=== PATIENT | female | born 1930 | race Hispanic/Latino ===

== ENCOUNTER 2017-10-17 07:43 | Emergency (ER) | payer MEDICARE ==
--- NOTE | 2017-10-17 09:24 | XRay Report ---
RIGHT WRIST RADIOGRAPHS INDICATION: Pain, deformity. COMPARISON: None similar at this institution. FINDINGS: AP, lateral and oblique right wrist radiographs demonstrate distal radius metaphyseal Colles' fracture with lateral cortical offset of 2 mm on the frontal view. Intact distal radioulnar and radiocarpal articulations however. Extensive overlying diffuse soft tissue swelling. 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 CONCLUSION: Right wrist acute Colles' fracture, bony demineralization and osteoarthritic changes noted, as above. Thank you for the opportunity to participate in this patient's care.
[2017-10-17] MEDS ORDERED: NORCO 5/325 PO ONE (09:26)
--- NOTE | 2017-10-17 09:27 | XRay Report ---
RIGHT KNEE RADIOGRAPHS INDICATION: Pain. COMPARISON: None similar. FINDINGS: AP, lateral and oblique right knee radiographs demonstrate mild to moderate medial compartment narrowing and mild degenerative spurring medially. Possible osteopenia. Mild diffuse soft tissue swelling/prominence at the knee anteriorly questioned. CONCLUSION: No acute right knee bony abnormality with mild medial compartment degenerative changes noted, as above. Thank you for the opportunity to participate in this patient's care.
--- NOTE | 2017-10-17 10:03 | Emergency Department Report ---
ED Fall HPI - General Chief Complaint: Extremity Injury, Upper Stated Complaint: FALL, POSS FX WRIST, HIP PAIN Time Seen by Provider: 10/17/17 08:43 Source: patient, family Mode of arrival: Ambulatory - History of Present Illness Initial Comments: ` Patient here with her family member reports that she slipped and fell last night and injured her right wrist which is her dominant hand. She says she is having pain 7 out of 10 to her right wrist and right knee and achy to the knee and throbbing to right wrist. She says she fell and tried to brace her fall with her right hand and during this time she hit her right knee. Patient is a history of arthritis but denies osteoporosis. Denies any dizziness or lightheadedness prior to falling. Denies any headache or head injury. Denies any nausea or vomiting. Denies any back pain or neck pain. No over-the- counter pain medication taken. Pain is better at rest then worse with movement. Patient lives at home with her daughter. She denies any urinary burning frequency or urgency. Denies any cough or congestion. Denies any shortness of breath or chest pain. Denies any dizziness, nausea or vomiting. Denies any abdominal or back pain. MD Complaint: fall -: Last night Fall From: standing When Fall Occurred: other (Last night) Fall Witnessed: no Place Fall Occurred: home Loss of Consciousness: none Prolonged Down Time?: no Symptoms Prior to Fall: none Location - Extremities: Right: Forearm (at wrist), Hand, Knee Severity: severe Severity scale (0 -10): 8 Quality: aching, other (Throbbing) Context: tripped/slipped Associated Symptoms: denies: headache, neck pain, numbness, weakness, chest paint, shortness of breath, abdominal pain, hematuria, unable to walk, lightheaded, vertigo, confusion - Related Data Previous Rx's Medication Instructions Recorded Last Taken Type Acetaminophen/Codeine [Tylenol 1 tab PO Q6H PRN 3 Days #12 tab 10/17/17 Unknown Rx /Codeine # 3 tab] Ibuprofen [Motrin] 600 mg PO Q8H PRN 5 Days #15 tablet 10/17/17 Unknown Rx Allergies Allergy/AdvReac Type Severity Reaction Status Date / Time No Known Allergies Allergy Unverified 10/17/17 08:16 ED Review of Systems ROS: Stated complaint: FALL, POSS FX WRIST, HIP PAIN Other details as noted in HPI Comment: All other systems reviewed and negative Constitutional: no symptoms reported ENT: denies: ear pain, throat pain, congestion Respiratory: no symptoms reported Cardiovascular: denies: chest pain, palpitations, dyspnea on exertion, orthopnea , edema, syncope, paroxysmal nocturnal dyspnea Gastrointestinal: denies: abdominal pain, nausea, vomiting, diarrhea, constipation Genitourinary: denies: urgency, dysuria, frequency, hematuria, discharge Musculoskeletal: joint swelling, arthralgia. denies: back pain, myalgia Skin: denies: rash Neurological: denies: headache, weakness, numbness, paresthesias, confusion, abnormal gait, vertigo ED Past Medical Hx - Past Medical History Previous Medical History?: Yes Hx Hypertension: Yes - Surgical History Past Surgical History?: No - Family History Family history: hypertension - Social History Smoking Status: Never Smoker Substance Use Type: Alcohol - Medications Home Medications: Home Medications Medication Instructions Recorded Confirmed Last Taken Type Acetaminophen/Codeine [Tylenol 1 tab PO Q6H PRN 3 Days #12 tab 10/17/17 Unknown Rx /Codeine # 3 tab] Ibuprofen [Motrin] 600 mg PO Q8H PRN 5 Days #15 tablet 10/17/17 Unknown Rx ED Physical Exam - General Limitations: No Limitations General appearance: alert, in no apparent distress - Head Head exam: Present: atraumatic, normocephalic, normal inspection - Expanded Head Exam Expanded Head exam: Absent: laceration, abrasion, contusion, hematoma, racoon eyes, renee's sign, general tenderness, tenderness of temporal artery, CSF rhinorrhea , CSF otorrhea - Eye Eye exam: Present: normal appearance, PERRL, EOMI. Absent: nystagmus, periorbital swelling, periorbital tenderness Pupils: Present: normal accommodation - ENT ENT exam: Present: normal exam, normal orophraynx, mucous membranes moist, TM's normal bilaterally, normal external ear exam - Neck Neck exam: Present: normal inspection, full ROM, other (no C-spine tenderness). Absent: tenderness, meningismus, lymphadenopathy, thyromegaly - Expanded Neck Exam Expanded Neck exam: Absent: tenderness, midline deformity, anterior neck swelling, thyroid mass, carotid bruit, tracheal deviation - Respiratory Respiratory exam: Present: normal lung sounds bilaterally. Absent: respiratory distress, wheezes, chest wall tenderness, accessory muscle use - Cardiovascular Cardiovascular Exam: Present: regular rate, normal rhythm, normal heart sounds. Absent: systolic murmur, diastolic murmur - GI/Abdominal GI/Abdominal exam: Present: soft, normal bowel sounds. Absent: distended, tenderness, guarding, rebound, rigid, organomegaly, mass, bruit, pulsatile mass , hernia - Extremities Exam Extremities exam: Present: tenderness, normal capillary refill, joint swelling, other (patient able to ambulate without any difficulties. +2 pulses to all extremities. No neurovascular compromise.). Absent: normal inspection, full ROM, pedal edema, calf tenderness - Expanded Upper Extremity Exam Right General: Absent: normal inspection, laceration, abrasion, nail injury (#), foreign body, amputation, avulsion Shoulder Exam: Present: normal inspection, full ROM. Absent: tenderness, swelling, abrasion, laceration, ecchymosis, deformity, crepidus, dislocation, erythema, tenderness over AC joint Upper Arm exam: Present: normal inspection, full ROM. Absent: tenderness, swelling, abrasion, laceration, ecchymosis, deformity, crepidus, dislocation, erythema Elbow exam: Present: normal inspection, full ROM. Absent: tenderness, swelling , abrasion, laceration, ecchymosis, deformity, crepidus, dislocation, erythema, effusion, pain w/ pronation/supination, tenderness over radial head Forearm Wrist exam: Present: tenderness (tendon palpates to), swelling ( right wrist), ecchymosis (right wrist), deformity (right wrist). Absent: normal inspection, full ROM (Limited range of motion to wrist patient with pain to flexion-extension), abrasion, laceration, crepidus, dislocation, erythema Hand Wrist exam: Present: tenderness, ecchymosis, deformity. Absent: normal inspection, full ROM, swelling, abrasion, laceration, crepidus, dislocation, erythema, amputation, nail avulsion, subungual hematoma Neuro motor exam: Present: wrist extension intact, thumb opposition intact, thumb IP flexion intact, thumb adduction intact, fingers 2-5 abduction intact Neurosensory exam: Present: 2-point discrimination, radial nerve intact, ulnar nerve intact, median nerve intact Vascular: Present: normal capillary refill, radial pulse, brachial pulse, ulnar pulse. Absent: vascular compromise, Pallo, pulse deficit radial art, pulse deficit ulnar art, pulse deficit brachial art - Expanded Lower Extremity Exam Right Hip exam: Present: normal inspection, full ROM, pelvic stability. Absent: tenderness, swelling, abrasion, laceration, ecchymosis, deformity, crepidus, dislocation, erythema, external rotation, internal rotation, shortening Upper Leg exam: Present: normal inspection, full ROM. Absent: tenderness, swelling, abrasion, laceration, ecchymosis, deformity, crepidus, dislocation, erythema Knee exam: Present: normal inspection, full ROM, full knee extension. Absent: tenderness, swelling, abrasion, laceration, ecchymosis, deformity, crepidus, dislocation, erythema, effusion, pain w/ pronation/supination, posterior draw sign, pain/laxity with valgus, pain/laxity with varus Lower Leg exam: Present: normal inspection, full ROM. Absent: tenderness, swelling, abrasion, laceration, ecchymosis, deformity, crepidus, dislocation, erythema, palpable cord, Smith's sign Ankle exam: Present: normal inspection, full ROM. Absent: tenderness, swelling , abrasion, laceration, ecchymosis, deformity, crepidus, dislocation, erythema Foot/Toe exam: Present: normal inspection, full ROM. Absent: tenderness, swelling, abrasion, laceration, ecchymosis, deformity, crepidus, dislocation, erythema, amputation, puncture wound, foreign body, calcaneal tenderness, tenderness at base of 5th metatarsal, nail avulsion, subungual hematoma Neuro vascular tendon exam: Present: no vascular compromise. Absent: pulse deficit, abnormal cap refill, motor deficit, sensory deficit, tendon deficit, extremity cold to touch, pallor, abnormal 2-point discrimination, decreased fine /light touch, foot drop, peroneal nerve deficit, significant pain with passive ROM of distal joint Gait: Positive: observed and limited by pain - Back Exam Back exam: Present: normal inspection, full ROM, other (patient able to ambulate without any difficulties). Absent: tenderness, CVA tenderness (R), CVA tenderness (L), muscle spasm, paraspinal tenderness, vertebral tenderness, rash noted - Neurological Exam Neurological exam: Present: alert, oriented X3, normal gait, reflexes normal. Absent: motor sensory deficit - Expanded Neurological Exam Expanded Neurological exam: Absent: innattentive, memory loss-remote event, memory loss- recent event, ataxia, receptive aphasia, expressive aphasia, total aphasia, tremor, protecting the airway Patient oriented to: Present: person, place, time Speech: Present: fluid speech Cranial nerves: EOM's Intact: Normal, Gag Reflex: Normal, Tongue Deviation: Normal, Nystagmus: Normal, Facial Sensation: Normal Cerebellar function: Romberg: Normal Upper motor neuron: Pronator Drift: Normal, Sensory Extinction: Normal Sensory exam: Upper Extremity Light Touch: Normal, Upper Extremity Temperature: Normal, UE 2 Point Discrimination: Normal, Lower Extremity Light Touch: Normal, Lower Extremity Temperature: Normal, LE 2 Point Discrimination: Normal Motor strength exam: RUE: 5, LUE: 5, RLE: 5, LLE: 5 DTR: bicep (R): 2+, bicep (L): 2+, tricep (R): 2+, tricep (L): 2+, knee (R): 2+ , knee (L): 2+, ankle (R): 2+, ankle (L): 2+ Best Eye Response (Radha): (4) open spontaneously Best Motor Response (Radha): (6) obeys commands Best Verbal Response (Radha): (5) oriented Radha Total: 15 - Psychiatric Psychiatric exam: Present: normal affect, normal mood - Skin Skin exam: Present: warm, dry, intact, normal color. Absent: rash ED Course Vital Signs 10/17/17 10/17/17 10/17/17 08:11 10:00 10:28 Temperature 98.2 F 99.9 F H Pulse Rate 96 H 95 H Respiratory 16 14 14 Rate Blood Pressure 132/84 Blood Pressure 149/64 [Left] O2 Sat by Pulse 100 98 98 Oximetry 10/17/17 11:40 Temperature 99.9 F H Pulse Rate 94 H Respiratory 14 Rate Blood Pressure Blood Pressure 146/72 [Left] O2 Sat by Pulse 96 Oximetry - Reevaluation(s) Reevaluation #1: 10/17/17 11:16 Patient had [place] 5/325 2 tablets in the emergency room the pain is relieved her pain. OCL dorsal splint placed to right wrist. I spoke with Dr. Montgomery reviewed films and informed me that patient needs surgery and patient should follow-up in his office tomorrow and he will schedule surgery for . This was relayed to patient and her daughter. - Orthopedic Splinting/Casting Injury #1 Side: right Upper Extremity Injury Location: wrist, hand Upper Extremity Immobilizer: sling/shoulder immobilize, volar spint Additional Comments: Patient with good color, sensation, movement and temperatures to fingers of right hand status post splint placement. Capillary refill is less than 3 seconds to fingers. ED Medical Decision Making - Radiology Data Radiology results: report reviewed X-ray of right wrist reveals right wrist acute Colles' fracture, bony demineralization and osteoarthritic changes noted. Right knee x-ray without any fracture or dislocation. Patient with osteoporosis on x-ray. - Medical Decision Making ED course: Patient brought into the emergency room by her daughter who reports that patient slipped and fell last night and injured her right wrist and hand and right knee. Daughter said the patient lives with her. Patient denies any fainting feeling, dizziness prior to falling. X-ray of right wrist revealed patient with Colles' fracture to right wrist. Patient was swelling to right wrist and tender to palpate with obvious deformity. X-ray of right knee reveals no acute fracture dislocation. Dr. Montgomery was orthopedic doctor right x -ray and added that patient needed to have surgery to repair right wrist which is her dominant hand and that she also has osteoporosis which patient and daughter denied that she had or they have never been told that she has osteoporosis. Patient had Volar OCL splint placed and good neurovascular check status post splint placement. I discussed results and follow-up plans with patient and daughter and they are in agreement to call Dr. Montgomery's office for follow-up visit tomorrow and plan for outpatient surgery on . See procedure note for detail and splinted. Patient was given [place] 5/325 2 tablets by mouth in emergency room for pain. She reports that her wrist felt better after splinted. Critical care attestation.: If time is entered above; I have spent that time in minutes in the direct care of this critically ill patient, excluding procedure time. ED Disposition Clinical Impression: Arthralgia of multiple sites Right wrist fracture Qualifiers: Encounter type: initial encounter Fracture type: closed Qualified Code(s): S62.101A - Fracture of unspecified carpal bone, right wrist, initial encounter for closed fracture Accidental fall Qualifiers: Encounter type: initial encounter Qualified Code(s): W19.XXXA - Unspecified fall, initial encounter Contusion of right hand Qualifiers: Encounter type: initial encounter Qualified Code(s): S60.221A - Contusion of right hand, initial encounter Disposition: DC-01 TO HOME OR SELFCARE Is pt being admited?: No Does the pt Need Aspirin: No Condition: Stable Instructions: Wrist Injury (ED), Wrist Fracture in Adults (ED), Fall Prevention for Older Adults (ED), Foot Contusion (ED), Arthralgia (ED), Splint Care (ED) Additional Instructions: Please follow up with primary care as recommended Increase fluid intake Take medication as prescribed . please do not drive or operate heavy machinery while taking Tylenol#3 as this medication causes drowsiness Referred to discharge instruction on splint care. Referred to discharge instruction in [facility] therapy. These follow-up with orthopedic doctor as instructed. He is call today to schedule an appointment for tomorrow. Dr. Montgomery was orthopedic doctor will see you in his office tomorrow and plan for surgery on . Please keep affected area clean and dry Prescriptions: Acetaminophen/Codeine [Tylenol /Codeine # 3 tab] 1 tab PO Q6H PRN 3 Days #12 tab PRN Reason: Pain, Moderate (4-6) Ibuprofen [Motrin] 600 mg PO Q8H PRN 5 Days #15 tablet PRN Reason: Pain Referrals: PRIMARY MD TAE [Primary Care Provider] - 3-5 Days ALLEN MONTGOMERY MD [Staff Physician] - 10/18/17 9:00 am Forms: Accompanied Note
[2017-10-17] MEDS ORDERED: TORADOL IM ONE (10:04)
[2017-10-17 11:41] VITALS: BP 146/72
== END 2017-10-17 11:39 | disposition home or self-care (01) ==
LOC: ED 07:43
DX: S52.531A Colles' fracture of right radius, initial encounter for closed fracture (principal); S60.221A Contusion of right hand, initial encounter; M25.561 Pain in right knee; I10 Essential (primary) hypertension; Z88.5 Allergy status to narcotic agent; W17.89XA Other fall from one level to another, initial encounter; Y93.89 Activity, other specified; Y92.89 Other specified places as the place of occurrence of the external cause; Y99.8 Other external cause status
CPT/HCPCS: 29125; 73110; 73562; 96372; 99284; J1885